=== PATIENT | male | born 1970 | race Caucasian/White ===

== ENCOUNTER 2020-11-27 10:43 | Emergency (ER) | payer OTHER ==
[2020-11-27] MEDS ORDERED: Diphtheria,Pertussis(Acell),Tetanus Vaccine 0.5 ML Syringe IM ONE (10:56)
[2020-11-27] MEDS ORDERED: HYDROmorphone 1 MG/ML Syringe ONE (11:07)
[2020-11-27] MEDS ORDERED: HYDROmorphone 1 MG/ML Syringe IVPUSH ONE (11:11)
[2020-11-27] MEDS ORDERED: Ciprofloxacin 500 MG Tab PO ONE (11:25)
[2020-11-27] MEDS ORDERED: Lidocaine 1% 10 ML MDV INJECT ONE (11:29)
--- NOTE | 2020-11-27 11:45 | EDM.PDOC ---
ED HPI GENERAL MEDICAL PROBLEM - General Chief Complaint: Lower Extremity Injury/Pain Stated Complaint: CATFISH ELA IN FOOT Time Seen by Provider: 11/27/20 10:50 - History of Present Illness INITIAL COMMENTS - FREE TEXT/NARRATIVE: CHIEF COMPLAINT(S): Stung by a catfish HISTORY OF PRESENT ILLNESS: This is a 50-year-old man without any significant past medical history who comes to the emergency department with a chief complai nt of stung by a catfish. The patient states that we was catfish fishing and was stung by a catfish which he described as a channel catfish. He states that he immediately had pain in his left foot and came to the emergency department. This was approximately 40 minutes ago. He denies any chest pain, shortness of breath, abdominal pain, nausea or vomiting. He states that it feels like anytime he mov es his foot like the ela is stuck into the rubber of his boot. He states that it came in through the left side of the boot and he feels it in between his second and third toes on the left foot. She describes his pain as sharp and 10 out of 10. There is no numbness, tingling, weakness. REVIEW OF SYSTEMS: Constitutional: Denies fever, chills. Eyes: Denies eye pain Ears, Nose, Mouth, & Throat: Denies earache Cardiovascular: Denies chest pain Respiratory: Denies shortness of breath Gastrointestinal: Denies Nausea, vomiting, diarrhea, hematochezia. Genitourinary: Denies hematuria Skin:Denies a rash MSK: Positive for left foot pain secondary to catfish ela Neurological: Denies blurred vision, numbness, tingling, weakness Psychiatric: Denies depression PAST MEDICAL HISTORY: As per history of present illness and as reviewed below otherwise noncontributory. SURGICAL HISTORY: As per history of present illness and as reviewed below otherwise noncontributory. SOCIAL HISTORY: As per history of present illness and as reviewed below otherwise noncontributory. FAMILY HISTORY: As per history of present illness and as reviewed below otherwise noncontributory. EXAMINATION OF ORGAN SYSTEMS/BODY AREAS: Constitutional: Blood pressure is 156/106, heart rate 91, respiratory rate 18 with an oxygen saturation 96% on room air. Temperature 36.2 General: Middle-aged man who is in no acute distress appears to be in a moderate amount of pain Psychiatric: Appropriate mood and affect. Eyes: No scleral icterus or conjunctival erythema Cardiovascular: Regular, rate, and rhythm. No gallops, murmurs, or rubs. Bilateral upper extremity and lower extremity pulses symmetric and intact. No peripheral edema. No JVD. Respiratory: Lungs clear to auscultation bilaterally. No wheezes, rales, or rhonchi. Musculoskeletal: Decreased range of motion of the fourth and third toe of the left foot. There is a catfish ela which enters the medial aspect of the fourth toe on the medial side exits the left toe and punctures the third toe without any further extension. There is no active bleeding. Skin: Puncture wound secondary to ela wound on the left fourth toe and third toe on the left foot Neurological: Alert, GCS 15 distal sensation is intact MEDICAL DECISION MAKING AND COURSE IN THE ED WITH INTERPRETATION/REVIEW OF DIAGNOSTIC STUDIES: This is a 50-year-old man without any significant past medical history who comes to the emergency department with catfish ela from a channel catfish that is located through the fourth toe on the left foot into the third toe of the left foot who is mildly hypertensive and is in a moderate amount of pain. We will provide the patient with 1 mg of IV Dilaudid. We will update the patient's tetanus and obtain a left foot x-ray. In the interim I did contact poison control and at this time they recommended to immerse the foot in hot water for 30 to 90 minutes to help with the pain. They stated that typically with catfish barbs there is just local effects and rarely systemic. If there is systemic toxicity look for tachycardia, hypotension, and loss of consciousness. Did not recommend any further treatment. No labs are indicated at this time. The radiological images were viewed by myself along with reading the report from the radiologist. Left foot x-ray is read as no growth pathology or obvious radiopaque foreign body. I do disagree with the read as there is an obvious catfish ela located in between the third and fourth digit. After the patient's foot was soaked in hot water the patient reported improvement in his pain. At this time I did perform a digital nerve block of the 2 digits that are mainly affected. Digital nerve block procedure note Using 1% lidocaine using a 27-gauge needle after ChloraPrep preparation approximately 1 cc was injected on the medial and lateral side of the third and fourth toe. Complications: None noted After approximately 5 to 10 minutes the patient did report improvement in his pain. At this time we will attempt to remove the catfish ela. Using a hemostat with gentle traction the catfish ela was difficult to remove. We did attempt to use an 11 blade after appropriate sterile cleaning to incise the medial side of the fourth toe as the catfish ela was superficial in this area. After this the catfish ela was able to be removed completely. The patient did report improvement. There was no significant bleeding. We did irrigate the wound on both toes using a 18-gauge IV catheter tip and to a saline bag to irrigate the open wounds with approximately 100 cc. We did obtain a post removal x-ray. We did start the patient on ciprofloxacin and discussed the need to continue with ciprofloxacin until all antibiotics are gone. We did not suture up the wounds as this area was contaminated and high risk for infection. I did discuss if he had any worsening pus drainage or redness that he needs to return to the emergency department. There was a significant delay in having the radiology read. We did attempt multiple calls. On my review of the repeat x-ray there was no evidence of foreign body or fracture therefore I did discuss with patient that the patient could be discharged and if there was any abnormality on his x- ray that I would contact him. The final read was read approximately 3-1/2 hours after submission to radiology. The radiological images were viewed by myself along with reading the report from the radiologist. Left foot x-ray does not reveal any fracture or evidence of foreign body. DISPOSITION: The patient was discharged home in stable condition. The patient will follow up with primary care physician within 3 to 5 days CONDITION: Fair PROCEDURES: Digital nerve block x2, foreign body removal FINAL IMPRESSION(S)/DIAGNOSES: 1. Acute catfish ela foreign body into third and fourth toes of the left foot Trung Garcia M.D. left foot Pain Score (Numeric/FACES): 9 - Related Data Allergies Allergy/AdvReac Type Severity Reaction Status Date / Time No Known Allergies Allergy Verified 11/27/20 10:57 Home Meds: Home Meds Celecoxib [CeleBREX] 11/27/20 [History] Cetirizine [ZyrTEC] 11/27/20 [History] Ciprofloxacin [Ciprofloxacin HCl] 500 mg PO BID #14 tab 11/27/20 [Rx] Past Medical History - Past Health History Medical/Surgical History: Denies Medical/Surgical History Social & Family History - Tobacco Use Tobacco Use Status *Q: Never Tobacco User - Recreational Drug Use Recreational Drug Use: No Review of Systems - Review of Systems Review Of Systems: See Below ED EXAM, GENERAL - Physical Exam Exam: See Below Course - Vital Signs Last Recorded V/S: Last Vital Signs Temp 36.2 C 11/27/20 10:55 Pulse 68 11/27/20 13:55 Resp BP 130/78 11/27/20 13:55 Pulse Ox 98 11/27/20 13:55 - Orders/Labs/Meds Meds: Medications Discontinued Medications Generic Name Dose Route Start Last Admin Trade Name Freq PRN Reason Stop Dose Admin Acetaminophen 1,000 mg 11/27/20 12:47 11/27/20 12:53 Acetaminophen 500 Mg Tab PO 11/27/20 12:48 1,000 mg ONETIME ONE Administration Bacitracin 1 dose 11/27/20 12:43 11/27/20 12:53 Bacitracin Oint 1 Gm U/D Packet TOP 11/27/20 12:44 1 dose ONETIME ONE Administration Ciprofloxacin 500 mg 11/27/20 11:25 11/27/20 11:58 Ciprofloxacin 500 Mg Tab PO 11/27/20 11:26 500 mg ONETIME ONE Administration Diphtheria/Tetanus/Acell Pertussis 0.5 ml 11/27/20 10:56 11/27/20 11:57 Diphtheria,Pertussis(Acell),Tetanus Vaccine 0.5 Ml Syringe IM 11/27/20 10:57 0.5 ml .ONCE ONE Administration Hydromorphone HCl Confirm 11/27/20 11:07 11/27/20 11:13 Hydromorphone 1 Mg/Ml Syringe Administered 11/27/20 11:08 Not Given Dose 1 mg .ROUTE .STK-MED ONE Hydromorphone HCl 1 mg 11/27/20 11:11 11/27/20 11:12 Hydromorphone 1 Mg/Ml Syringe IVPUSH 11/27/20 11:12 1 mg ONETIME ONE Administration Lidocaine HCl Confirm 11/27/20 11:54 11/27/20 11:59 Lidocaine 1% 5 Ml Sdv Administered 11/27/20 11:55 Not Given Dose 10 ml .ROUTE .STK-MED ONE Lidocaine HCl 10 ml 11/27/20 11:56 11/27/20 11:58 Lidocaine 1% 5 Ml Sdv INJECT 11/27/20 11:57 5 ml ONETIME ONE Administration Departure - Departure Time of Disposition: 13:55 Disposition: Home, Self-Care 01 Condition: Fair Clinical Impression: Foreign body of toe of left foot - Discharge Information *PRESCRIPTION DRUG MONITORING PROGRAM REVIEWED*: No *COPY OF PRESCRIPTION DRUG MONITORING REPORT IN PATIENT JACQUELINE: No Prescriptions: Ciprofloxacin [Ciprofloxacin HCl] 500 mg PO BID #14 tab Instructions: Hand or Foot Foreign Body, Adult Referrals: PCP,None [Primary Care Provider] - Forms: ED Department Discharge Additional Instructions: You evaluate today on an emergent basis. At this time we did update your tetanus status. We were able to remove the ela from your third and fourth toe. We did not close the wounds as this increases the risk of infection. I do recommend you clean the area with soap and water and refrain from wearing close toed shoes until healed. There was no evidence of any fracture on x-ray. I do recommend that you use Tylenol 500 mg to 1000 mg every 6 hours for the next 48 hours and then as needed after that. I would continue to use your Celebrex. I will also start you on ciprofloxacin for prophylaxis for infection. If you start to notice that you have any pus drainage or redness I would like you to return to the emergency department. Otherwise please follow-up with the [facility] clinic. Ice the area 20 minutes 4 times per day [facility] [address] [place] [address] [place] [address] The patient is informed of any results of their evaluation and diagnostic workup and all questions are answered. They are given discharge instructions and return precautions. The patient is stable for discharge. The patient states they understand and agree with the plan and that they will return if their symptoms get worse or if they have any new concerns. The following information is given to patients seen in the emergency department who are being discharged to home. This information is to outline your options for follow-up care. We provide all patients seen in our emergency department with a follow-up referral. The need for follow-up, as well as the timing and circumstances, are variable depending upon the specifics of your emergency department visit. If you don't have a primary care physician on staff, we will provide you with a referral. We always advise you to contact your personal physician following an emergency department visit to inform them of the circumstance of the visit and for follow-up with them and/or the need for any referrals to a consulting specialist. The emergency department will also refer you to a specialist when appropriate. This referral assures that you have the opportunity for follow-up care with a specialist. All of these measure are taken in an effort to provide you with optimal care, which includes your follow-up. Under all circumstances we always encourage you to contact your private physician who remains a resource for coordinating your care. When calling for follow-up care, please make the office aware that this follow-up is from your recent emergency room visit. If for any reason you are refused follow-up, please contact the [facility] Emergency Department at and asked to speak to the emergency department charge nurse. Sepsis Event Note (ED) - Evaluation Sepsis Screening Result: No Definite Risk
--- NOTE | 2020-11-27 12:00 | CR ---
INDICATION: Foreign body cat Fish mike. Comparison :none. TECHNIQUE: Two-view study left thru an overlying shoe FINDINGS: No evidence of acute fracture or dislocation. No obvious radiopaque foreign bodies identified. If clinically needed, a repeat examination of the foot after removal of the shoe suggested. IMPRESSION: No gross pathology. Dictated by Kp Agustin MD @ 11/27/2020 11:59:[address] Kp Agustin @ Nov 27 2020 11:59AM
[2020-11-27] MEDS ORDERED: Bacitracin Oint 1 GM U/D Packet TOP ONE (12:43)
[2020-11-27] MEDS ORDERED: Acetaminophen 500 MG Tab PO ONE (12:47)
--- NOTE | 2020-11-27 15:44 | CR ---
Indication: S/p removal of mike from soft tissues between 3rd and 4th toe Technique: Frontal and lateral views left foot Comparison: None Findings: Bones: Alignment is normal. No fractures or bone lesions. Joint spaces: Unremarkable. Soft tissues: No radiopaque foreign body.. Impression: Negative. No radiopaque foreign body. Dictated by Emily Valladares MD @ 11/27/2020 3:42:[address] Emily Valladares @ Nov 27 2020 3:42PM
== END 2020-11-27 13:55 | disposition home or self-care (01) ==
LOC: MW.ED 10:43
DX: S91.145A Puncture wound with foreign body of left lesser toe(s) without damage to nail, initial encounter (principal); Z23 Encounter for immunization; W56.52XA Struck by other fish, initial encounter
CPT/HCPCS: 28190; 73620; 90471; 90715; 96374; 99283; A9270; J1170; 10120; 64450